=== PATIENT | female | born 1950 ===

== ENCOUNTER 2018-10-17 09:14 | Emergency (ER) | payer MEDICARE ==
[2018-10-17 09:21] VITALS: RESP 16; TEMP 97; O2SAT 98
[2018-10-17] MEDS ORDERED: Tetanus/Diphtheria Toxoids 0.5 ml Syringe IM ONE ×2 (10:17→10:23)
--- NOTE | 2018-10-17 10:19 | C.PDOC ---
History Of Present Illness 68 y/o female pt with no known hx presents to the ER c/o a trip and fell injury. Pt reports she was on her way to her job when she trip and fell, landing foreword on her face. Pt notes she had a nose bleed, facial swelling and right knee abrasion. Currently, her nose bleed has stop. Pt denies LOC, neck pain, headache, light headedness, weakness and numbness. Time Seen by Provider: 10/17/18 10:05 Chief Complaint (Nursing): Lower Extremity Problem/Injury History Per: Patient History/Exam Limitations: no limitations Onset/Duration Of Symptoms: Hrs Current Symptoms Are (Timing): Still Present - Knee Description Of Injury: Fell Past Medical History Reviewed: Historical Data, Nursing Documentation, Vital Signs Vital Signs: Last Vital Signs Temp 97 F L 10/17/18 09:19 Pulse 68 10/17/18 09:19 Resp 16 10/17/18 09:19 BP 177/93 H 10/17/18 09:19 Pulse Ox 98 10/17/18 09:19 Family History: States: No Known Family Hx - Social History Hx Alcohol Use: No Hx Substance Use: No - Immunization History Hx Tetanus Toxoid Vaccination: No Hx Influenza Vaccination: No Hx Pneumococcal Vaccination: No Review Of Systems Except As Marked, All Systems Reviewed And Found Negative. Constitutional: Positive for: Other (facial swelling ) ENT: Positive for: Other (nose bleed ) Cardiovascular: Negative for: Light Headedness Musculoskeletal: Positive for: Other (right knee abrasion). Negative for: Neck Pain Neurological: Negative for: Weakness, Numbness, Headache, Other (LOC) Physical Exam - Physical Exam Appears: Non-toxic, No Acute Distress Skin: Warm, Dry Head: Normacephalic, No Tenderness, No Swelling, No Laceration Eye(s): bilateral: Normal Inspection Nose: No Epistaxis, Other (swelling bridge of nose and abrasion on tip of nose; dry blood in both nostrils) Oral Mucosa: Moist Neck: Normal ROM, Supple Cardiovascular: Rhythm Regular Respiratory: Normal Breath Sounds, No Rales, No Rhonchi, No Wheezing Gastrointestinal/Abdominal: Soft, No Tenderness Back: No CVA Tenderness Extremity: Normal ROM, No Tenderness, No Pedal Edema, No Calf Tenderness, Capillary Refill (<2 sec), No Deformity, No Swelling, Other (abrasion to right knee) Extremity: Bilateral: Normal Color And Temperature Pulses: Right Dorsalis Pedis: Normal Neurological/Psych: Oriented x3, Normal Speech, Normal Cognition, Normal Motor, Normal Sensation ED Course And Treatment O2 Sat by Pulse Oximetry: 98 (RA) Pulse Ox Interpretation: Normal - Other Rad knee X-Ray: Read By Radiologist Interpretation: Accession No. : [id number]. Patient Name / ID : ANA BAHENA / [id number]. Exam Date : 10/17/2018 10:18:32 ( Approved ). Study Comment : Sex / Age : F / 68Y. Creator : Bhanu Masters MD. Dictator : Bhanu Masters MD. Incident Response Consultant : French Pastry Cook : Bhanu Masters MD. Approver2 : Report Date : 10/17/2018 11:53:06. My Comment : . Date of service: 10/17/2018. PROCEDURE: Right Knee Radiographs. HISTORY: r/o fx. COMPARISON: None. FINDINGS: BONES: Normal. No fracture. JOINTS: Normal. No osteoarthritis. JOINT EFFUSION: None. OTHER FINDINGS: None. IMPRESSION: Normal radiographs of the right knee. - CT Scan/US Maxillofacial Other Rad Studies (CT/US): Read By Radiologist, Radiology Report Reviewed CT/US Interpretation: Accession No. : [id number]. Patient Name / ID : ANA BAHENA / [id number]. Exam Date : 10/17/2018 10:56:53 ( Approved ). Study Comment : Sex / Age : F / 68Y. Creator : Aldair Guillen. Dictator : Bhanu Masters MD. Incident Response Consultant : French Pastry Cook : Bhanu Masters MD. Approver2 : Report Date : 10/17/2018 11:05:27. My Comment : . Date of service: 10/17/2018. PROCEDURE: CT MAXILLOFACIAL BONES WITHOUT CONTRAST. HISTORY: r/o fx. COMPARISON: None available. TECHNIQUE: Contiguous axial CT images of the maxillofacial bones were obtained. Coronal and sagittal reformats were generated. Radiation dose: Total exam DLP = 798.41 mGy-cm. This CT exam was performed using one or more of the following dose reduction techniques: Automated exposure control, adjustment of the mA and/or kV according to patient size, and/or use of iterative reconstruction technique. FINDINGS: NASAL BONES: Possible minimally displaced fracture right nasal bone. Deviated nasal septum towards the left in association with bony nasal spur. ORBITS: Unremarkable. PARANASAL SINUSES/ MASTOIDS: Clear. MAXILLA: Unremarkable. MANDIBLE/ TEMPOROMANDIBULAR JOINTS: Unremarkable. SKULL BASE: Unremarkable. TEMPORAL BONES: Middle ears and mastoid grossly unremarkable. OTHER FINDINGS: None. IMPRESSION: Minimally displaced right nasal fracture. No additional abnormality. Medical Decision Making Medical Decision Making: Plans: -- CT maxillofacial -- Right knee -- Tetanus -- Tylenol Disposition - Disposition Referrals: Lopez Zuniga MD [Staff Provider] - Disposition: HOME/ ROUTINE Disposition Time: 12:00 Condition: GOOD Additional Instructions: Follow up with ENT for the nasal fracture and take tylenol for pain and follow up with your pcp for the knee injury. Prescriptions: Acetaminophen [Tylenol 325mg tab] 650 mg PO Q4 #20 tab Instructions: Nose Fracture, Contusion (DC) Forms: [email or web address] (Malay) - Clinical Impression Clinical Impression: Nasal fracture, Contusion - Scribe Statement The provider has reviewed the documentation as recorded by the Scribe Ryanne Osorio Provider Attestation: All medical record entries made by the Scribe were at my direction and personally dictated by me. I have reviewed the chart and agree that the record accurately reflects my personal performance of the history, physical exam, medical decision making, and the department course for this patient. I have also personally directed, reviewed, and agree with the discharge instructions and disposition.
--- NOTE | 2018-10-17 11:37 | CT ---
Date of service: 10/17/2018 PROCEDURE: CT MAXILLOFACIAL BONES WITHOUT CONTRAST HISTORY: r/o fx COMPARISON: None available. TECHNIQUE: Contiguous axial CT images of the maxillofacial bones were obtained. Coronal and sagittal reformats were generated. Radiation dose: Total exam DLP = 798.41 mGy-cm. This CT exam was performed using one or more of the following dose reduction techniques: Automated exposure control, adjustment of the mA and/or kV according to patient size, and/or use of iterative reconstruction technique. FINDINGS: NASAL BONES: Possible minimally displaced fracture right nasal bone. Deviated nasal septum towards the left in association with bony nasal spur. ORBITS: Unremarkable. PARANASAL SINUSES/ MASTOIDS: Clear. MAXILLA: Unremarkable. MANDIBLE/ TEMPOROMANDIBULAR JOINTS: Unremarkable. SKULL BASE: Unremarkable. TEMPORAL BONES: Middle ears and mastoid grossly unremarkable. OTHER FINDINGS: None. IMPRESSION: Minimally displaced right nasal fracture. No additional abnormality.
--- NOTE | 2018-10-17 11:56 | RAD ---
Date of service: 10/17/2018 PROCEDURE: Right Knee Radiographs. HISTORY: r/o fx COMPARISON: None. FINDINGS: BONES: Normal. No fracture. JOINTS: Normal. No osteoarthritis. JOINT EFFUSION: None. OTHER FINDINGS: None. IMPRESSION: Normal radiographs of the right knee.
[2018-10-17 12:01] VITALS: BP 160/89; PULSE 75
== END 2018-10-17 12:00 | disposition home or self-care (01) ==
LOC: C.ER 09:14
DX: S02.2XXA Fracture of nasal bones, initial encounter for closed fracture (principal); W01.0XXA Fall on same level from slipping, tripping and stumbling without subsequent striking against object, initial encounter; Z23 Encounter for immunization